=== PATIENT | female | born 1985 | race Caucasian/White ===

== ENCOUNTER 2017-10-06 02:30 | Emergency (ER) | payer MEDICAID, OTHER ==
[2017-10-06 02:31] VITALS: BMI 20.7
[2017-10-06 02:49] VITALS: BP 124/75; PULSE 88; RESP 16; TEMP 97.7; O2SAT 98
--- NOTE | 2017-10-06 03:02 | ED PDOC ---
HPI: General Adult Time Seen by Provider: 10/06/17 02:50 Chief Complaint (Nursing): Cough, Cold, Congestion Chief Complaint (Provider): sore throat History Per: Patient History/Exam Limitations: no limitations Onset/Duration Of Symptoms: Days (1 week) Current Symptoms Are (Timing): Still Present Additional Complaint(s): 32 y/o female brought in by EMS for evaluation of throat pain x 1 week. Patient states tonight while sleeping she felt as if he throat was closing, as she couldn't get air down her throat, prompting ED visit. Denies fever, ear pain, cough, congestion, drooling, vomiting, chest pain, palpitations, leg pain/ swelling. Past Medical History Reviewed: Historical Data, Nursing Documentation, Vital Signs Vital Signs: Last Vital Signs Temp 97.7 F 10/06/17 02:46 Pulse 88 10/06/17 02:46 Resp 16 10/06/17 02:46 BP 124/75 10/06/17 02:46 Pulse Ox 98 10/06/17 03:02 - Medical History PMH: No Chronic Diseases - Surgical History Surgical History: No Surg Hx - Family History Family History: States: No Known Family Hx - Living Arrangements Living Arrangements: With Family - Social History Current smoker - smoking cessation education provided: Yes Alcohol: Social Drugs: Denies - Home Medications Home Medications: Ambulatory Orders Medication Instructions Recorded Naproxen [Naprosyn Tab] 375 mg PO Q8 PRN #15 tab 01/04/16 Ondansetron ODT [Zofran ODT] 4 mg PO Q8 PRN #8 odt 01/04/16 Ibuprofen [Motrin Tab] 1 tab PO Q6 PRN #20 tab 10/06/17 - Allergies Allergies/Adverse Reactions: Allergies Allergy/AdvReac Type Severity Reaction Status Date / Time No Known Allergies Allergy Verified 01/04/16 11:37 Review of Systems ROS Statement: Except As Marked, All Systems Reviewed And Found Negative ENT: Positive for: Throat Pain Physical Exam - Reviewed Nursing Documentation Reviewed: Yes Vital Signs Reviewed: Yes - Physical Exam Appears: Positive for: Well, Non-toxic, No Acute Distress (speaking in full sentences) Head Exam: Positive for: ATRAUMATIC, NORMAL INSPECTION, NORMOCEPHALIC Skin: Positive for: Normal Color Eye Exam: Positive for: Normal appearance ENT: Positive for: Pharyngeal Erythema, Other (uvula midway, airway patent). Negative for: Tonsillar Exudate, Tonsillar Swelling Cardiovascular/Chest: Positive for: Regular Rate, Rhythm Respiratory: Positive for: Normal Breath Sounds Back: Positive for: Normal Inspection Extremity: Positive for: Normal ROM Neurologic/Psych: Positive for: Alert, Oriented - ECG O2 Sat by Pulse Oximetry: 98 - Progress ED Course And Treament: ibuprofen, decadron IM, rapid strep On re-eval, patient states she is feeling better. Patient educated on findings, discharged with rx ibuprofen Advised follow up PMD 2-3 days. Return precautions given Disposition - Clinical Impression Clinical Impression: Pharyngitis - Patient ED Disposition Is Patient to be Admitted: No Counseled Patient/Family Regarding: Studies Performed, Diagnosis, Need For Followup, Rx Given - Disposition Disposition: Routine/Home Disposition Time: 04:24 Condition: IMPROVED Prescriptions: Ibuprofen [Motrin Tab] 1 tab PO Q6 PRN #20 tab PRN Reason: Pain, Moderate (4-7) Instructions: Viral Pharyngitis Forms: [employer] (Turkish)
== END 2017-10-06 05:37 | disposition home or self-care (01) ==
LOC: H.ER 02:30
DX: J02.9 Acute pharyngitis, unspecified (principal); F17.200 Nicotine dependence, unspecified, uncomplicated
CPT/HCPCS: 81025; 87070; 87430; 96372; 99282; J1100